=== PATIENT | male | born 1985 | race Hispanic/Latino ===

== ENCOUNTER 2016-09-16 10:09 | Emergency (ER) | payer OTHER ==
--- NOTE | 2016-09-16 11:11 | EDDOCDS ---
Physician Documentation [facility] Name: Jayna Owen Age: 30 yrs Sex: Male : 1985 Arrival Date: 09/16/2016 Time: 10:09 Bed TR8 Private MD: [facility] Disposition: 09/16/16 10:38 Discharged to Home/Self Care. Impression: Other chest pain, Chondrocostal junction syndrome [Tietze]. - Condition is Stable. - Discharge Instructions: Chest Wall Pain, Costochondritis, [id number]. - Prescriptions for Medrol (Chris) 4 mg Oral Tablets, Dose Pack - take 1 Pack by ORAL route as directed - follow package instructions; 1 packet. - Medication Reconciliation, Local Pharmacy Hours form. - Follow up: [facility]; When: Tomorrow; Reason: Further diagnostic work-up, Recheck today's complaints, Continuance of care. - Problem is chronic. - Symptoms are unchanged. Historical: - Allergies: IODINEIODINE CONTAINING; SHELLFISH; - Home Meds: 1. none - PMHx: none; - PSHx: none; - Social history: Smoking status: Patient states was never smoker of tobacco. No barriers to communication noted, The patient speaks fluent Ugandan. - Family history: No immediate family members are acutely ill. - : The pt / caregiver states he / she is not on anticoagulants. Home medication list is obtained from the patient. - Exposure Risk Screening:: None identified. Vital Signs: 09/16 10:12 BP 114 / 70; Pulse 67; Resp 16; Temp 97.6(O); Pulse Ox 100% ; Weight 98.43 kg / 217 lbs cmb (R); Height 70 in. (177.80 cm) (R); Pain 7/10; 10:12 Body Mass Index 31.14 (98.43 kg, 177.80 cm) cmb MDM: 10:57 Financial registration complete. lg Signatures: Jennifer Rangel, RN RN Nick Dominique, Reg Reg lg Mahad Lux PA PA btw Belles, Michael, RN RN mb9 MTDD
--- NOTE | 2016-09-16 11:11 | EDDOCDS ---
Nurse's Notes [facility] Name: Jayna Owen Age: 30 yrs Sex: Male : 1985 Arrival Date: 09/16/2016 Time: 10:09 Bed TR8 Private MD: NVDELFINA YIP Diagnosis: Other chest pain;Chondrocostal junction syndrome [Tietze] Presentation: 09/16 10:17 Presenting complaint: Patient states: he has had chest pain on and off since last year kcs - had severe pain last night and tried to sleep it off today but his Sgt. told him to go to the ED. Aspirin was not taken prior to arrival. Adult Sepsis Screening: The patient does not have new or worsening altered mentation. Patient's respiratory rate is less than 22. Systolic blood pressure is greater than 100. Patient has a qSOFA score of 0- Negative Sepsis Screen. Suicide/Homicide risk assessment- the patient denies having any suicidal and/or homicidal ideations and does not present with any other emotional, behavioral or mental health complaints. 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 Transition of care: patient was not received from another setting of care. 10:17 Acuity: ROBERT Level 3 kcs 10:17 Method Of Arrival: Walkin/Carried/Asstd kcs Triage Assessment: 10:19 General: Appears comfortable, well developed, well nourished, well groomed, Behavior is kcs cooperative, pleasant. Pain: Location: chest Pain currently is 7 out of 10 on a pain scale. At worst was 10 out of 10 on a pain scale. 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 Neurological: Level of Consciousness is awake, alert. Respiratory: Airway is patent Respiratory effort is even, unlabored, Respiratory pattern is regular, symmetrical. Derm: Skin is intact, is healthy with good turgor, Skin is dry, Skin is normal. Historical: - Allergies: IODINEIODINE CONTAINING; SHELLFISH; - Home Meds: 1. none - PMHx: none; - PSHx: none; - Social history: Smoking status: Patient states was never smoker of tobacco. No barriers to communication noted, The patient speaks fluent Portuguese. - Family history: No immediate family members are acutely ill. - : The pt / caregiver states he / she is not on anticoagulants. Home medication list is obtained from the patient. - Exposure Risk Screening:: None identified. Screenin:09 Screening information is obtained from the patient. Fall risk: No risks identified. mb9 Assistance ADL's: requires no assistance with activities of daily living. Abuse/DV Screen: The patient / caregiver reports he/she is: not in a situation that causes fear, pain or injury. Nutritional screening: No deficits noted. Advance Directives: There is no active DNR order. home support is adequate. Assessment: 11:09 General: Appears in no apparent distress, Behavior is appropriate for age, cooperative. mb9 Pain: Location: chest Pain currently is 2 out of 10 on a pain scale. Cardiovascular: Chest pain is aggravated by breathing. Respiratory: Airway is patent Respiratory effort is even, unlabored. Vital Signs: 10:12 BP 114 / 70; Pulse 67; Resp 16; Temp 97.6(O); Pulse Ox 100% ; Weight 98.43 kg (R); cmb Height 70 in. (177.80 cm) (R); Pain 7/10; 10:12 Body Mass Index 31.14 (98.43 kg, 177.80 cm) cmb Vitals: 10:12 Log In Time: September 16, 2016 at 10:09. cmb ED Course: 10:10 Patient visited by Serenity Mullins. cmb 10:10 Patient moved to Waiting cmb 10:12 [facility] is Private Physician. cmb 10:14 Patient moved to Pre RCE cmb 10:19 Triage Initiated kcs 10:26 Patient moved to Triage 1 kcs 10:28 [facility] Lux [facility]. btw 10:28 Joy Ignacio MD is Attending Physician. btw 10:29 Patient visited by Mahad Lux PA. btw 10:37 [facility] is Referral Physician. btw 11:08 Patient moved to TR8 mb9 11:09 The patient / caregiver is instructed regarding the plan of care and ED course. Cardiac mb9 monitoring not applicable on this patient. 11:09 No IV's were initiated during this patient's visit. No procedures done that require mb9 assistance. Order Results: There are currently no results for this order. Outcome: 10:38 Discharge ordered by Provider. btw 11:09 Discharge Assessment: Patient awake, alert and oriented x 3. No cognitive and/or mb9 functional deficits noted. Patient verbalized understanding of disposition instructions. patient administered narcotics - no. The following High Risk Discharge criteria are identified: None. Discharged to home ambulatory. Condition: good Condition: stable Condition: improved. Discharge instructions given to patient, Instructed on discharge instructions, follow up and referral plans. medication usage, Demonstrated understanding of instructions, medications, Pt was receptive of discharge instructions/ teaching. No special radiology studies were completed. Property :Personal belongings accompany Pt. 11:11 Patient left the ED. mb9 Signatures: Jennifer Rangel, RN RN Mahad Ferrera PA PA btw [place], [place] cmb Belles, MichaelRN RN mb9 MTDD
--- NOTE | 2016-09-18 12:11 | EDDOCDS ---
Physician Documentation [facility] Name: Jayna Owen Age: 30 yrs Sex: Male : 1985 Arrival Date: 09/16/2016 Time: 10:09 Bed TR8 Private MD: [facility] Disposition: 09/16/16 10:38 Discharged to Home/Self Care. Impression: Other chest pain, Chondrocostal junction syndrome [Tietze]. - Condition is Stable. - Discharge Instructions: Chest Wall Pain, Costochondritis, [id number]. - Prescriptions for Medrol (Chris) 4 mg Oral Tablets, Dose Pack - take 1 Pack by ORAL route as directed - follow package instructions; 1 packet. - Medication Reconciliation, Local Pharmacy Hours form. - Follow up: [facility]; When: Tomorrow; Reason: Further diagnostic work-up, Recheck today's complaints, Continuance of care. - Problem is chronic. - Symptoms are unchanged. Historical: - Allergies: IODINEIODINE CONTAINING; SHELLFISH; - Home Meds: 1. none - PMHx: none; - PSHx: none; - Social history: Smoking status: Patient states was never smoker of tobacco. No barriers to communication noted, The patient speaks fluent Filipino. - Family history: No immediate family members are acutely ill. - : The pt / caregiver states he / she is not on anticoagulants. Home medication list is obtained from the patient. - Exposure Risk Screening:: None identified. Vital Signs: 09/16 10:12 BP 114 / 70; Pulse 67; Resp 16; Temp 97.6(O); Pulse Ox 100% ; Weight 98.43 kg / 217 lbs cmb (R); Height 70 in. (177.80 cm) (R); Pain 7/10; 10:12 Body Mass Index 31.14 (98.43 kg, 177.80 cm) cmb MDM: 10:57 Financial registration complete. lg 12:39 T-Sheet-- Draft Copy was scanned into [employer] and attached to record. gb 09/17 07:48 [facility] Payment Agreement was scanned into [employer] and attached to record. lg Signatures: Jennifer Rangel RN RN Daysi Green, Reg Reg gb Nick Ye, Reg Reg lg Mahad Lux PA PA btw Belles, MichaelRN RN mb9 The chart was reviewed and I authenticate all verbal orders and agree with the evaluation and treatment provided.Attachments: 09/16 12:39 T-Sheet-- Draft Copy gb 09/17 07:48 [facility] Payment Agreement lg Chart Complete MTDD
--- NOTE | 2016-09-18 12:11 | EDDOCDS ---
Physician Documentation [facility] Name: Jayna Owen Age: 30 yrs Sex: Male : 1985 Arrival Date: 09/16/2016 Time: 10:09 Bed TR8 Private MD: [facility] Disposition: 09/16/16 10:38 Discharged to Home/Self Care. Impression: Other chest pain, Chondrocostal junction syndrome [Tietze]. - Condition is Stable. - Discharge Instructions: Chest Wall Pain, Costochondritis, [id number]. - Prescriptions for Medrol (Chris) 4 mg Oral Tablets, Dose Pack - take 1 Pack by ORAL route as directed - follow package instructions; 1 packet. - Medication Reconciliation, Local Pharmacy Hours form. - Follow up: [facility]; When: Tomorrow; Reason: Further diagnostic work-up, Recheck today's complaints, Continuance of care. - Problem is chronic. - Symptoms are unchanged. Historical: - Allergies: IODINEIODINE CONTAINING; SHELLFISH; - Home Meds: 1. none - PMHx: none; - PSHx: none; - Social history: Smoking status: Patient states was never smoker of tobacco. No barriers to communication noted, The patient speaks fluent Montserratian. - Family history: No immediate family members are acutely ill. - : The pt / caregiver states he / she is not on anticoagulants. Home medication list is obtained from the patient. - Exposure Risk Screening:: None identified. Vital Signs: 09/16 10:12 BP 114 / 70; Pulse 67; Resp 16; Temp 97.6(O); Pulse Ox 100% ; Weight 98.43 kg / 217 lbs cmb (R); Height 70 in. (177.80 cm) (R); Pain 7/10; 10:12 Body Mass Index 31.14 (98.43 kg, 177.80 cm) cmb MDM: 10:57 Financial registration complete. lg 12:39 T-Sheet-- Draft Copy was scanned into [email or web address] and attached to record. gb 09/17 07:48 [facility] Payment Agreement was scanned into [email or web address] and attached to record. lg Signatures: Jennifer Rangel RN RN Daysi Green, Reg Reg gb Nick Ye, Reg Reg lg Mahad Lux PA PA btw Belles, MichaelRN RN mb9 The chart was reviewed and I authenticate all verbal orders and agree with the evaluation and treatment provided.Attachments: 09/16 12:39 T-Sheet-- Draft Copy gb 09/17 07:48 [facility] Payment Agreement lg Chart Complete MTDD
--- NOTE | 2016-09-18 12:11 | EDDOCDS ---
Nurse's Notes [facility] Name: Jayna Owen Age: 30 yrs Sex: Male : 1985 Arrival Date: 09/16/2016 Time: 10:09 Bed TR8 Private MD: WADELFINA YIP Diagnosis: Other chest pain;Chondrocostal junction syndrome [Tietze] Presentation: 09/16 10:17 Presenting complaint: Patient states: he has had chest pain on and off since last year kcs - had severe pain last night and tried to sleep it off today but his Sgt. told him to go to the ED. Aspirin was not taken prior to arrival. Adult Sepsis Screening: The patient does not have new or worsening altered mentation. Patient's respiratory rate is less than 22. Systolic blood pressure is greater than 100. Patient has a qSOFA score of 0- Negative Sepsis Screen. Suicide/Homicide risk assessment- the patient denies having any suicidal and/or homicidal ideations and does not present with any other emotional, behavioral or mental health complaints. 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 Transition of care: patient was not received from another setting of care. 10:17 Acuity: ROBERT Level 3 kcs 10:17 Method Of Arrival: Walkin/Carried/Asstd kcs Triage Assessment: 10:19 General: Appears comfortable, well developed, well nourished, well groomed, Behavior is kcs cooperative, pleasant. Pain: Location: chest Pain currently is 7 out of 10 on a pain scale. At worst was 10 out of 10 on a pain scale. 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 Neurological: Level of Consciousness is awake, alert. Respiratory: Airway is patent Respiratory effort is even, unlabored, Respiratory pattern is regular, symmetrical. Derm: Skin is intact, is healthy with good turgor, Skin is dry, Skin is normal. Historical: - Allergies: IODINEIODINE CONTAINING; SHELLFISH; - Home Meds: 1. none - PMHx: none; - PSHx: none; - Social history: Smoking status: Patient states was never smoker of tobacco. No barriers to communication noted, The patient speaks fluent Salvadorean. - Family history: No immediate family members are acutely ill. - : The pt / caregiver states he / she is not on anticoagulants. Home medication list is obtained from the patient. - Exposure Risk Screening:: None identified. Screenin:09 Screening information is obtained from the patient. Fall risk: No risks identified. mb9 Assistance ADL's: requires no assistance with activities of daily living. Abuse/DV Screen: The patient / caregiver reports he/she is: not in a situation that causes fear, pain or injury. Nutritional screening: No deficits noted. Advance Directives: There is no active DNR order. home support is adequate. Assessment: 11:09 General: Appears in no apparent distress, Behavior is appropriate for age, cooperative. mb9 Pain: Location: chest Pain currently is 2 out of 10 on a pain scale. Cardiovascular: Chest pain is aggravated by breathing. Respiratory: Airway is patent Respiratory effort is even, unlabored. Vital Signs: 10:12 BP 114 / 70; Pulse 67; Resp 16; Temp 97.6(O); Pulse Ox 100% ; Weight 98.43 kg (R); cmb Height 70 in. (177.80 cm) (R); Pain 7/10; 10:12 Body Mass Index 31.14 (98.43 kg, 177.80 cm) cmb Vitals: 10:12 Log In Time: September 16, 2016 at 10:09. cmb ED Course: 10:10 Patient visited by Serenity Mullins. cmb 10:10 Patient moved to Waiting cmb 10:12 [facility] is Private Physician. cmb 10:14 Patient moved to Pre RCE cmb 10:19 Triage Initiated kcs 10:26 Patient moved to Triage 1 kcs 10:28 Mahad Lux PA is PHCP. btw 10:28 Joy Ignacio MD is Attending Physician. btw 10:29 Patient visited by Mahad Lux PA. btw 10:37 [facility] is Referral Physician. btw 11:08 Patient moved to TR8 mb9 11:09 The patient / caregiver is instructed regarding the plan of care and ED course. Cardiac mb9 monitoring not applicable on this patient. 11:09 No IV's were initiated during this patient's visit. No procedures done that require mb9 assistance. 12:39 T-Sheet-- Draft Copy was scanned into [employer] and attached to record. gb 09/17 07:48 [facility] Payment Agreement was scanned into [employer] and attached to record. lg Order Results: There are currently no results for this order. Outcome: 09/16 10:38 Discharge ordered by Provider. btw 11:09 Discharge Assessment: Patient awake, alert and oriented x 3. No cognitive and/or mb9 functional deficits noted. Patient verbalized understanding of disposition instructions. patient administered narcotics - no. The following High Risk Discharge criteria are identified: None. Discharged to home ambulatory. Condition: good Condition: stable Condition: improved. Discharge instructions given to patient, Instructed on discharge instructions, follow up and referral plans. medication usage, Demonstrated understanding of instructions, medications, Pt was receptive of discharge instructions/ teaching. No special radiology studies were completed. Property :Personal belongings accompany Pt. 11:11 Patient left the ED. mb9 Signatures: Jennifer Rangel, RN RN Daysi rGeen, Reg Reg gb Nick Ye, Reg Reg lg Mahad Lux, MOE PA btw Serenity Mullins MichaelRN RN mb9 Chart [facility]
== END 2016-09-16 11:11 | disposition home or self-care (01) ==
LOC: M ED 10:09
DX: M94.0 Chondrocostal junction syndrome [Tietze] (principal); Z88.8 Allergy status to other drugs, medicaments and biological substances; Z91.013 Allergy to seafood

== ENCOUNTER 2016-11-04 20:24 | Emergency (ER) | payer OTHER ==
[2016-11-04] MEDS ORDERED: IBUPROFEN 800 MG TAB As Ordered ONE (22:30)
--- NOTE | 2016-11-04 22:41 | EDDOCDS ---
Nurse's Notes [facility] Name: Jayna Owen Age: 30 yrs Sex: Male : 1985 Arrival Date: 11/04/2016 Time: 20:24 Bed TR8 Private MD: NEDELFINA YIP Diagnosis: Sprain of other ligament of left ankle;Other sprain of right hip Presentation: 11/04 20:31 Presenting complaint: Patient states: Left ankle and right groin injury, states fell mlb1 down 7 stairs. The patients lower extremity appears normal on examination. has obvious swelling present on examination. Adult Sepsis Screening: The patient does not have new or worsening altered mentation. Patient's respiratory rate is less than 22. Systolic blood pressure is greater than 100. Patient has a qSOFA score of 0- Negative Sepsis Screen. Suicide/Homicide risk assessment- the patient denies having any suicidal and/or homicidal ideations and does not present with any other emotional, behavioral or mental health complaints. 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 Transition of care: patient was not received from another setting of care. 20:31 Acuity: ROBERT Level 4 mlb1 20:31 Method Of Arrival: Walkin/Carried/Asstd mlb1 Triage Assessment: 20:33 General: Appears in no apparent distress, Behavior is appropriate for age, cooperative. mlb1 Pain: Location: left ankle, right femoral area Pain currently is 10 out of 10 on a pain scale. HIV screening NA for this visit Offered previously. 22:40 Musculoskeletal: Circulation, motion, and sensation intact Swelling present in left mlb1 ankle Reports. Historical: - Allergies: IODINEIODINE CONTAINING; SHELLFISH; - Home Meds: 1. none - PMHx: none; - PSHx: none; - Social history: Smoking status: Patient states was never smoker of tobacco. No barriers to communication noted, The patient speaks fluent Slovenian, Speaks appropriately for age. - Family history: Not pertinent. - : The pt / caregiver states he / she is not on anticoagulants. Home medication list is obtained from the patient. - Exposure Risk Screening:: None identified. Screenin:39 Screening information is obtained from the patient. Fall risk: No risks identified. mlb1 Assistance ADL's: requires no assistance with activities of daily living. Abuse/DV Screen: The patient / caregiver reports he/she is: not in a situation that causes fear, pain or injury. Nutritional screening: No deficits noted. Advance Directives: Currently, there is no health care proxy. home support is adequate. Assessment: 22:37 General: Appears in no apparent distress, Behavior is appropriate for age, cooperative. mlb1 Pain: Location: left ankle Pain currently is 8 out of 10 on a pain scale. Musculoskeletal: Capillary refill < 3 seconds is brisk in left toes No deformity noted Signs and Symptoms of Compartment Syndrome: no signs of compartment syndrome. Vital Signs: 20:27 BP 134 / 82; Pulse 96; Resp 18 S; Temp 96.4(O); Pulse Ox 99% on R/A; Weight 99.79 kg gr2 (R); Height 5 ft. 11 in. (180.34 cm) (R); Pain 8/10; 20:27 Body Mass Index 30.68 (99.79 kg, 180.34 cm) gr2 Vitals: 20:27 Log In Time: November 04, 2016 at 20:27. gr2 ED Course: 20:26 Patient visited by Binta Swann. gr2 20:26 Patient moved to Waiting gr2 20:27 [facility] is Private Physician. gr2 20:29 Patient visited by Binta Swann. gr2 20:29 Patient moved to Pre RCE gr2 20:31 Patient visited by Luciano Cote RN. mlb1 20:33 Triage Initiated mlb1 20:34 Patient visited by Luciano Cote RN. mlb1 21:47 Patient moved to Triage 1 [facility] 22:15 Luciano Gonzales PA is PHCP. mo1 22:15 Chris Hoyos MD is Attending Physician. mo1 22:18 Patient visited by Luciano Gonzales PA. mo1 22:33 [facility] is Referral Physician. mo1 22:36 Patient moved to TR8 [facility] 22:38 Patient visited by Luciano Cote, TAYLOR. mlb1 22:39 No IV's were initiated during this patient's visit. No procedures done that require mlb1 assistance. 22:40 Patient visited by Luciano Cote, TAYLOR. mlb1 22:40 The patient / caregiver is instructed regarding the plan of care and ED course. mlb1 Administered Medications: 22:37 Drug: Ibuprofen 800 mg [ibuprofen 800 mg tablet (1 tabs)] Route: PO; mlb1 Order Results: There are currently no results for this order. Outcome: 22:33 Discharge ordered by Provider. mo1 22:39 Discharge Assessment: Patient awake, alert and oriented x 3. No cognitive and/or mlb1 functional deficits noted. Patient verbalized understanding of disposition instructions. patient administered narcotics - no. The following High Risk Discharge criteria are identified: None. Discharged to home ambulatory. Condition: good. Discharge instructions given to patient, Instructed on discharge instructions, follow up and referral plans. medication usage, Rest, Ice, Compression and Elevation. Demonstrated understanding of instructions, Pt was receptive of discharge instructions/ teaching. No special radiology studies were completed. Property sent home with patient. 22:40 Patient left the ED. mlb1 Signatures: Coertta Vides RN RN Luciano Fairchild RN RN mlb1 Binta Swnan gr2 Luciano Gonzales PA PA mo1 ROBEL
--- NOTE | 2016-11-04 22:41 | EDDOCDS ---
Physician Documentation [facility] Name: Jayna Owen Age: 30 yrs Sex: Male : 1985 Arrival Date: 11/04/2016 Time: 20:24 Bed TR8 Private MD: [facility] Disposition: 11/04/16 22:33 Discharged to Home/Self Care. Impression: Sprain of other ligament of left ankle, Other sprain of right hip. - Condition is Stable. - Discharge Instructions: Elastic Bandage and RICE, Ankle Sprain, Hip Pain. - Medication Reconciliation, Work Release Form - 2 day, Local Pharmacy Hours form. - Follow up: [facility]; When: Call to arrange an appointment; Reason: Recheck today's complaints, Continuance of care. - Problem is new. - Symptoms are unchanged. Historical: - Allergies: IODINEIODINE CONTAINING; SHELLFISH; - Home Meds: 1. none - PMHx: none; - PSHx: none; - Social history: Smoking status: Patient states was never smoker of tobacco. No barriers to communication noted, The patient speaks fluent German, Speaks appropriately for age. - Family history: Not pertinent. - : The pt / caregiver states he / she is not on anticoagulants. Home medication list is obtained from the patient. - Exposure Risk Screening:: None identified. Vital Signs: 11/04 20:27 BP 134 / 82; Pulse 96; Resp 18 S; Temp 96.4(O); Pulse Ox 99% on R/A; Weight 99.79 kg / gr2 220 lbs (R); Height 5 ft. 11 in. (180.34 cm) (R); Pain 8/10; 20:27 Body Mass Index 30.68 (99.79 kg, 180.34 cm) gr2 MDM: 20:38 Hip,AP,LAT to include Pelvis Ordered. EDMS 20:38 Ankle, Complete Ordered. EDMS 22:25 Ibuprofen 800 mg PO once ordered. mo1 22:25 Alberto Wrap ordered. mo1 22:39 Financial registration complete. ks16 Administered Medications: 22:37 Drug: Ibuprofen 800 mg [ibuprofen 800 mg tablet (1 tabs)] Route: PO; mlb1 Signatures: Dispatcher [employer] Luciano Swartz RN RN mlb1 Luciano Gonzales PA PA mo1 Vale Mitchell, Reg Reg ks16 MTDD
--- NOTE | 2016-11-05 07:44 | REP ---
Clinical: Trauma. Technique: Frontal view of the pelvis with neutral and frog lateral views of the left hip. Findings: Osseous structures are intact. No acute fracture dislocation. Surrounding soft tissues normal. Impression: No acute fracture or dislocation. Signed by Dionisio Goetz MD 11/05/2016 07:35 A
--- NOTE | 2016-11-05 07:45 | REP ---
Clinical: Trauma. Technique: AP, lateral, bilateral oblique views of the left ankle. Findings: Marked soft tissue swelling primarily over the lateral malleolus is consistent with inversion injury. Small corticated fragment inferior to the fibular head likely represents old injury. No obvious acute fracture or dislocation appreciated. Ankle mortise intact. Impression: Soft tissue swelling consistent with inversion injury. Possible small old avulsion fracture fragment at the lateral malleolus. No obvious acute fracture or dislocation. Signed by Dionisio Goetz MD 11/05/2016 07:36 A
--- NOTE | 2016-11-06 23:41 | EDDOCDS ---
Physician Documentation [facility] Name: Jayna wOen Age: 30 yrs Sex: Male : 1985 Arrival Date: 11/04/2016 Time: 20:24 Bed TR8 Private MD: [facility] Disposition: 11/04/16 22:33 Discharged to Home/Self Care. Impression: Sprain of other ligament of left ankle, Other sprain of right hip. - Condition is Stable. - Discharge Instructions: Elastic Bandage and RICE, Ankle Sprain, Hip Pain. - Medication Reconciliation, Work Release Form - 2 day, Local Pharmacy Hours form. - Follow up: [facility]; When: Call to arrange an appointment; Reason: Recheck today's complaints, Continuance of care. - Problem is new. - Symptoms are unchanged. Historical: - Allergies: IODINEIODINE CONTAINING; SHELLFISH; - Home Meds: 1. none - PMHx: none; - PSHx: none; - Social history: Smoking status: Patient states was never smoker of tobacco. No barriers to communication noted, The patient speaks fluent Telugu, Speaks appropriately for age. - Family history: Not pertinent. - : The pt / caregiver states he / she is not on anticoagulants. Home medication list is obtained from the patient. - Exposure Risk Screening:: None identified. Vital Signs: 11/04 20:27 BP 134 / 82; Pulse 96; Resp 18 S; Temp 96.4(O); Pulse Ox 99% on R/A; Weight 99.79 kg / gr2 220 lbs (R); Height 5 ft. 11 in. (180.34 cm) (R); Pain 8/10; 20:27 Body Mass Index 30.68 (99.79 kg, 180.34 cm) gr2 MDM: 20:38 Hip,AP,LAT to include Pelvis Ordered. EDMS 20:38 Ankle, Complete Ordered. EDMS 22:25 Ibuprofen 800 mg PO once ordered. mo1 22:25 Alberto Wrap ordered. mo1 22:39 Financial registration complete. [id number] 23:04 [facility] Payment Agreement was scanned into [employer] and attached to record. zo 11/05 12:14 Lab / Xray Callback was scanned into [employer] and attached to record. lbd 14:19 T-Sheet-- Draft Copy was scanned into [employer] and attached to record. gb Administered Medications: 11/04 22:37 Drug: Ibuprofen 800 mg [ibuprofen 800 mg tablet (1 tabs)] Route: PO; mlb1 Signatures: Dispatcher [employer] EDMS Dunia Maxwell, Lodging Facilities Attendant Unit lbd Daysi Tamayo, Reg Reg gb Luciano Cote RN RN mlb1 Padmini Joy Michael, PA PA mo1 Vale Mitchell, Reg Reg ks16 The chart was reviewed and I authenticate all verbal orders and agree with the evaluation and treatment provided.Attachments: 23:04 [facility] Payment Agreement zo 14:19 T-Sheet-- Draft Copy gb Chart Complete MTDD
--- NOTE | 2016-11-06 23:41 | EDDOCDS ---
Nurse's Notes [facility] Name: Jayna Owen Age: 30 yrs Sex: Male : 1985 Arrival Date: 11/04/2016 Time: 20:24 Bed TR8 Private MD: IDDELFINA YIP Diagnosis: Sprain of other ligament of left ankle;Other sprain of right hip Presentation: 11/04 20:31 Presenting complaint: Patient states: Left ankle and right groin injury, states fell mlb1 down 7 stairs. The patients lower extremity appears normal on examination. has obvious swelling present on examination. Adult Sepsis Screening: The patient does not have new or worsening altered mentation. Patient's respiratory rate is less than 22. Systolic blood pressure is greater than 100. Patient has a qSOFA score of 0- Negative Sepsis Screen. Suicide/Homicide risk assessment- the patient denies having any suicidal and/or homicidal ideations and does not present with any other emotional, behavioral or mental health complaints. 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 Transition of care: patient was not received from another setting of care. 20:31 Acuity: ROBERT Level 4 mlb1 20:31 Method Of Arrival: Walkin/Carried/Asstd mlb1 Triage Assessment: 20:33 General: Appears in no apparent distress, Behavior is appropriate for age, cooperative. mlb1 Pain: Location: left ankle, right femoral area Pain currently is 10 out of 10 on a pain scale. HIV screening NA for this visit Offered previously. 22:40 Musculoskeletal: Circulation, motion, and sensation intact Swelling present in left mlb1 ankle Reports. Historical: - Allergies: IODINEIODINE CONTAINING; SHELLFISH; - Home Meds: 1. none - PMHx: none; - PSHx: none; - Social history: Smoking status: Patient states was never smoker of tobacco. No barriers to communication noted, The patient speaks fluent Urdu, Speaks appropriately for age. - Family history: Not pertinent. - : The pt / caregiver states he / she is not on anticoagulants. Home medication list is obtained from the patient. - Exposure Risk Screening:: None identified. Screenin:39 Screening information is obtained from the patient. Fall risk: No risks identified. mlb1 Assistance ADL's: requires no assistance with activities of daily living. Abuse/DV Screen: The patient / caregiver reports he/she is: not in a situation that causes fear, pain or injury. Nutritional screening: No deficits noted. Advance Directives: Currently, there is no health care proxy. home support is adequate. Assessment: 22:37 General: Appears in no apparent distress, Behavior is appropriate for age, cooperative. mlb1 Pain: Location: left ankle Pain currently is 8 out of 10 on a pain scale. Musculoskeletal: Capillary refill < 3 seconds is brisk in left toes No deformity noted Signs and Symptoms of Compartment Syndrome: no signs of compartment syndrome. Vital Signs: 20:27 BP 134 / 82; Pulse 96; Resp 18 S; Temp 96.4(O); Pulse Ox 99% on R/A; Weight 99.79 kg gr2 (R); Height 5 ft. 11 in. (180.34 cm) (R); Pain 8/10; 20:27 Body Mass Index 30.68 (99.79 kg, 180.34 cm) gr2 Vitals: 20:27 Log In Time: November 04, 2016 at 20:27. gr2 ED Course: 20:26 Patient visited by Binta Swann. gr2 20:26 Patient moved to Waiting gr2 20:27 [facility] is Private Physician. gr2 20:29 Patient visited by Binta Swann. gr2 20:29 Patient moved to Pre RCE gr2 20:31 Patient visited by Luciano Cote, TAYLOR. mlb1 20:33 Triage Initiated mlb1 20:34 Patient visited by Luciano Cote, TYALOR. mlb1 21:47 Patient moved to Triage 1 [facility] 22:15 Luciano Gonzales PA is PHCP. mo1 22:15 Chris Hoyos MD is Attending Physician. mo1 22:18 Patient visited by Luciano Gonzales PA. mo1 22:33 [facility] is Referral Physician. mo1 22:36 Patient moved to TR8 [facility] 22:38 Patient visited by Luciano Cote, TAYLOR. mlb1 22:39 No IV's were initiated during this patient's visit. No procedures done that require mlb1 assistance. 22:40 Patient visited by Luciano Cote, TAYLOR. mlb1 22:40 The patient / caregiver is instructed regarding the plan of care and ED course. mlb1 23:04 [facility] Payment Agreement was scanned into [employer] and attached to record. zo 11/05 08:03 Hip,AP,LAT to include Pelvis Returned. EDMS 08:03 Ankle, Complete Returned. EDMS 12:14 Lab / Xray Callback was scanned into [employer] and attached to record. lbd 14:19 T-Sheet-- Draft Copy was scanned into [employer] and attached to record. gb Administered Medications: 11/04 22:37 Drug: Ibuprofen 800 mg [ibuprofen 800 mg tablet (1 tabs)] Route: PO; mlb1 Order Results: Radiology Order: Hip,AP,LAT to include Pelvis Test: Hip,AP,LAT to include Pelvis REASON FOR EXAMINATION: Trauma; Clinical: Trauma.; ; Technique: Frontal view of the pelvis with neutral and frog lateral views of the; left hip.; ; Findings:; Osseous structures are intact. No acute fracture dislocation. Surrounding soft; tissues normal.; ; Impression:; No acute fracture or dislocation.; ; ; Signed by; Dionisio Goetz MD 11/05/2016 07:35 A; Radiology Order: Ankle, Complete Test: Ankle, Complete REASON FOR EXAMINATION: Trauma; Clinical: Trauma.; ; Technique: AP, lateral, bilateral oblique views of the left ankle.; ; Findings:; Marked soft tissue swelling primarily over the lateral malleolus is consistent; with inversion injury. Small corticated fragment inferior to the fibular head; likely represents old injury. No obvious acute fracture or dislocation; appreciated. Ankle mortise intact.; ; Impression:; Soft tissue swelling consistent with inversion injury.; Possible small old avulsion fracture fragment at the lateral malleolus.; No obvious acute fracture or dislocation.; ; ; Signed by; Dionisio Goetz MD 11/05/2016 07:36 A; Outcome: 22:33 Discharge ordered by Provider. mo1 22:39 Discharge Assessment: Patient awake, alert and oriented x 3. No cognitive and/or mlb1 functional deficits noted. Patient verbalized understanding of disposition instructions. patient administered narcotics - no. The following High Risk Discharge criteria are identified: None. Discharged to home ambulatory. Condition: good. Discharge instructions given to patient, Instructed on discharge instructions, follow up and referral plans. medication usage, Rest, Ice, Compression and Elevation. Demonstrated understanding of instructions, Pt was receptive of discharge instructions/ teaching. No special radiology studies were completed. Property sent home with patient. 22:40 Patient left the ED. mlb1 11/05 10:21 radiology result reviewed by Dr Mendes advised to contact pt and have him return for [facility] air cast and crutches. Contacted pt advised of final radiology results and need to return for air cast and crutches. Pt states will return around 1500.:. Signatures: Dispatcher [employer] EDMS Dunia Maxwell, Mannequin Maker Unit lbd Salma Burr RN RN kpj Peters, Mary, RN RN mcp Barnhardt, Gloria, Reg Reg Luciano Cote RN RN mlb1 Padmini Joy Gainslee gr2 Luciano Gonzales PA PA mo1 Chart Complete MTDD
--- NOTE | 2016-11-06 23:41 | EDDOCDS ---
Physician Documentation [facility] Name: Jayna Owen Age: 30 yrs Sex: Male : 1985 Arrival Date: 11/04/2016 Time: 20:24 Bed TR8 Private MD: [facility] Disposition: 11/04/16 22:33 Discharged to Home/Self Care. Impression: Sprain of other ligament of left ankle, Other sprain of right hip. - Condition is Stable. - Discharge Instructions: Elastic Bandage and RICE, Ankle Sprain, Hip Pain. - Medication Reconciliation, Work Release Form - 2 day, Local Pharmacy Hours form. - Follow up: [facility]; When: Call to arrange an appointment; Reason: Recheck today's complaints, Continuance of care. - Problem is new. - Symptoms are unchanged. Historical: - Allergies: IODINEIODINE CONTAINING; SHELLFISH; - Home Meds: 1. none - PMHx: none; - PSHx: none; - Social history: Smoking status: Patient states was never smoker of tobacco. No barriers to communication noted, The patient speaks fluent Kyrgyz, Speaks appropriately for age. - Family history: Not pertinent. - : The pt / caregiver states he / she is not on anticoagulants. Home medication list is obtained from the patient. - Exposure Risk Screening:: None identified. Vital Signs: 11/04 20:27 BP 134 / 82; Pulse 96; Resp 18 S; Temp 96.4(O); Pulse Ox 99% on R/A; Weight 99.79 kg / gr2 220 lbs (R); Height 5 ft. 11 in. (180.34 cm) (R); Pain 8/10; 20:27 Body Mass Index 30.68 (99.79 kg, 180.34 cm) gr2 MDM: 20:38 Hip,AP,LAT to include Pelvis Ordered. EDMS 20:38 Ankle, Complete Ordered. EDMS 22:25 Ibuprofen 800 mg PO once ordered. mo1 22:25 Alberto Wrap ordered. mo1 22:39 Financial registration complete. ks16 23:04 [facility] Payment Agreement was scanned into [employer] and attached to record. zo 11/05 12:14 Lab / Xray Callback was scanned into [employer] and attached to record. lbd 14:19 T-Sheet-- Draft Copy was scanned into [employer] and attached to record. gb Administered Medications: 11/04 22:37 Drug: Ibuprofen 800 mg [ibuprofen 800 mg tablet (1 tabs)] Route: PO; mlb1 Signatures: Dispatcher [employer] EDMS Dunia Maxwell, Garnishment Specialist Unit lbd Daysi Tamayo, Reg Reg gb Luciano Cote RN RN mlb1 Padmini Joy Michael, PA PA mo1 Vale Mitchell, Reg Reg ks16 The chart was reviewed and I authenticate all verbal orders and agree with the evaluation and treatment provided.Attachments: 23:04 [facility] Payment Agreement zo 14:19 T-Sheet-- Draft Copy gb Chart Complete MTDD
== END 2016-11-04 22:40 | disposition home or self-care (01) ==
LOC: M ED 20:24
DX: S73.102A Unspecified sprain of left hip, initial encounter (principal); S93.402A Sprain of unspecified ligament of left ankle, initial encounter; X50.9XXA Other and unspecified overexertion or strenuous movements or postures, initial encounter; Y92.019 Unspecified place in single-family (private) house as the place of occurrence of the external cause; Y93.89 Activity, other specified; Y99.8 Other external cause status; Z91.013 Allergy to seafood

== ENCOUNTER 2016-11-05 18:04 | Emergency (ER) | payer OTHER | END 2016-11-05 18:30 | disposition left against medical advice (07) | LOC: M ED 18:04 | DX: R68.89 Other general symptoms and signs (principal); Z53.21 Procedure and treatment not carried out due to patient leaving prior to being seen by health care provider ==

== ENCOUNTER 2016-11-13 21:32 | Emergency (ER) | payer OTHER ==
[~2016-11-13] VITALS: Ht 175.3 cm; Wt 97.1 kg
[2016-11-14] MEDS ORDERED: IBUPROFEN 600 MG TAB PO ONE (01:30)
[2016-11-14 01:35] VITALS: BP 126/66
--- NOTE | 2016-11-14 10:23 | REP ---
LEFT ANKLE SERIES: Four views. HISTORY: Left ankle injury. Pain. FINDINGS: There is anterolateral soft tissue swelling. Ankle mortise is intact. No fracture is visible. The soft tissue swelling has decreased somewhat since the November 04 2016 prior study. IMPRESSION: No fracture is seen. Soft tissue swelling anterolaterally somewhat less prominent than on the recent prior study. Signed by Beau Brown MD 11/14/2016 04:39 P
== END 2016-11-14 01:41 | disposition home or self-care (01) ==
LOC: M ED 23:45
DX: S93.402A Sprain of unspecified ligament of left ankle, initial encounter (principal); W01.0XXA Fall on same level from slipping, tripping and stumbling without subsequent striking against object, initial encounter; Y92.9 Unspecified place or not applicable; Y93.9 Activity, unspecified; Y99.0 Civilian activity done for income or pay; Z91.013 Allergy to seafood; Z88.8 Allergy status to other drugs, medicaments and biological substances